=== PATIENT | male | born 1970 | race Caucasian/White ===

== ENCOUNTER 2020-11-04 16:11 | Inpatient (IN) | payer SELFPAY ==
[2020-11-04] VITALS (7 sets, daily range): BP systolic 97–119; BP diastolic 56–79
[~2020-11-04] VITALS: Ht 175.2 cm; Wt 80.4 kg
[2020-11-04 16:59] LABS: HEMATOCRIT 48.3 % (42.0-52.0); MEAN CELL VOLUME 88.3 fl (80.0-94.0); MEAN CORPUSCULAR HGB 28.9 pg (27.0-31.0); MEAN CORPUSCULAR HGB CONC 32.7 g/dl (33.0-37.0); MEAN PLATELET VOLUME 10.2 fl (9.6-12.3); PLATELET COUNT AUTOMATED 304 10*3/uL (130-400); RED BLOOD COUNT 5.47 10*6/uL (4.50-5.90); RED CELL DISTRI WIDTH 13.8 % (0-14.5); WHITE BLOOD COUNT 23.7 10*3/uL (4.8-10.8)
[2020-11-04 17:14] LABS: ALBUMIN 3.8 gm/dl (3.1-4.5); ALKALINE PHOSPHATASE 98 U/L (45-117); BUN 10 mg/dl (7-24); CHLORIDE 105 mmol/L (98-107); CREATININE 1.03 mg/dL (0.70-1.30); LIPASE 62 U/L (73-393); POTASSIUM 3.7 mmol/L (3.5-5.1); SGOT/AST 12 IU/L (3-35); SGPT/ALT 22 U/L (12-78); SODIUM 139 mmol/L (136-145)
[2020-11-04 17:26] LABS: PLATELET SUFFICIENCY NORMAL (NORMAL); TOTAL CELLS COUNTED 100 #CELLS
[2020-11-04 23:48] LABS: BILIRUBIN Negative (Negative); BLOOD Negative (Negative); CLARITY Clear (Clear); COLOR Yellow (Yellow); GLUCOSE Negative (Negative); KETONE Negative (Negative); LEUKO ESTERASE Negative (Negative); NITRITE Negative (Negative); UROBILINOGEN 0.2 E.U./dl (0.0-1.0)
[2020-11-05] VITALS (11 sets, daily range): BP systolic 96–124; BP diastolic 59–78
[2020-11-05 00:05] LABS: BACTERIA TRACE; MUCOUS 2+; WBC 0-2 wbc/hpf (0-5)
[2020-11-05] MEDS ORDERED: FLUOXETINE HYDR20 M1 PO (02:08)
[2020-11-05] MEDS ORDERED: RISPERIDONE1 MG PO (02:08)
[2020-11-05 04:36] LABS: HEMATOCRIT 42.8 % (42.0-52.0); MEAN CELL VOLUME 87.3 fl (80.0-94.0); MEAN CORPUSCULAR HGB 29.2 pg (27.0-31.0); MEAN CORPUSCULAR HGB CONC 33.4 g/dl (33.0-37.0); MEAN PLATELET VOLUME 10.1 fl (9.6-12.3); PLATELET COUNT AUTOMATED 283 10*3/uL (130-400); RED CELL DISTRI WIDTH 13.9 % (0-14.5)
[2020-11-05 04:43] LABS: WHITE BLOOD COUNT 38.8 10*3/uL (4.8-10.8)
[2020-11-05 04:54] LABS: ALBUMIN 2.9 gm/dl (3.1-4.5); ALKALINE PHOSPHATASE 70 U/L (45-117); BUN 13 mg/dl (7-24); CHLORIDE 110 mmol/L (98-107); POTASSIUM 3.7 mmol/L (3.5-5.1); SGOT/AST 9 IU/L (3-35); SGPT/ALT 18 U/L (12-78); SODIUM 141 mmol/L (136-145); TOTAL PROTEIN 6.7 gm/dL (6.4-8.2)
[2020-11-05 04:55] LABS: BURR CELLS MODERATE; PLATELET SUFFICIENCY NORMAL (NORMAL); TOTAL CELLS COUNTED 100 #CELLS
[2020-11-06] VITALS: BP 117/74
[2020-11-06 06:15] LABS: HEMATOCRIT 38.8 % (42.0-52.0); MEAN CELL VOLUME 88.4 fl (80.0-94.0); MEAN CORPUSCULAR HGB 29.6 pg (27.0-31.0); MEAN CORPUSCULAR HGB CONC 33.5 g/dl (33.0-37.0); PLATELET COUNT AUTOMATED 268 10*3/uL (130-400); RED BLOOD COUNT 4.39 10*6/uL (4.50-5.90); WHITE BLOOD COUNT 35.7 10*3/uL (4.8-10.8)
[2020-11-06 06:18] LABS: ALBUMIN 2.7 gm/dl (3.1-4.5); BUN 15 mg/dl (7-24); CHLORIDE 111 mmol/L (98-107); SODIUM 141 mmol/L (136-145)
[2020-11-06 06:27] LABS: ALKALINE PHOSPHATASE 79 U/L (45-117); SGOT/AST 17 IU/L (3-35); SGPT/ALT 14 U/L (12-78); TOTAL PROTEIN 6.6 gm/dL (6.4-8.2)
[2020-11-06 06:30] LABS: POTASSIUM 3.9 mmol/L (3.5-5.1)
[2020-11-06 07:16] LABS: PLATELET SUFFICIENCY NORMAL (NORMAL); TOTAL CELLS COUNTED 100 #CELLS
[2020-11-06 08:00] VITALS: BP 118/70
[2020-11-06 12:00] VITALS: BP 134/72
[2020-11-06 16:00] VITALS: BP 138/65
[2020-11-06 20:00] VITALS: BP 123/72
[2020-11-07] VITALS: BP 125/68
[2020-11-07 06:15] LABS: BASO % 0.2 % (0.0-1.0); EOS # 0.1 10*3/uL (0.0-0.4); EOS % 0.4 % (1.0-4.0); HEMATOCRIT 38.9 % (42.0-52.0); LYMPH # 1.1 10*3/uL (1.3-4.4); LYMPH % 4.8 % (27.0-41.0); MEAN CELL VOLUME 87.6 fl (80.0-94.0); MEAN CORPUSCULAR HGB 28.6 pg (27.0-31.0); MEAN CORPUSCULAR HGB CONC 32.6 g/dl (33.0-37.0); MEAN PLATELET VOLUME 10.7 fl (9.6-12.3); MONO # 1.5 10*3/uL (0.1-1.0); MONO % 6.8 % (3.0-9.0); NEUT # 19.2 10*3/uL (2.3-7.9); NEUT % 87.2 % (47.0-73.0); PLATELET COUNT AUTOMATED 290 10*3/uL (130-400); RED BLOOD COUNT 4.44 10*6/uL (4.50-5.90); RED CELL DISTRI WIDTH 14.1 % (0-14.5)
[2020-11-07 06:43] LABS: BUN 14 mg/dl (7-24); CHLORIDE 108 mmol/L (98-107); POTASSIUM 3.3 mmol/L (3.5-5.1); SODIUM 140 mmol/L (136-145)
[2020-11-07 06:45] LABS: CREATININE 0.91 mg/dL (0.70-1.30)
[2020-11-07 08:00] VITALS: BP 126/78
[2020-11-07] MEDS ORDERED: AUGMENTIN 875-875 MG PO (10:43)
[2020-11-07] MEDS ORDERED: HYDROCODONE-AC1 EAC1 PO (10:45)
== END 2020-11-07 14:00 | disposition home or self-care (01) | DRG 854 ==
LOC: ED 16:11 → 5E 19:42 → EDHOLD 19:42 → 5E 11-05 08:32
PROVIDERS: Emergency Medicine; Internal Medicine; Student in an Organized Health Care Education/Training Program; ADMIT Family Medicine; ATTEND Family Medicine
PROC: 0DTJ4ZZ Resection of Appendix, Percutaneous Endoscopic Approach (ICD-10-PCS; principal; 2020-11-05)
DX: A41.9 Sepsis, unspecified organism (principal); K35.30 Acute appendicitis with localized peritonitis, without perforation or gangrene; E44.1 Mild protein-calorie malnutrition; F31.9 Bipolar disorder, unspecified; F41.9 Anxiety disorder, unspecified; R73.9 Hyperglycemia, unspecified; F17.210 Nicotine dependence, cigarettes, uncomplicated; E87.8 Other disorders of electrolyte and fluid balance, not elsewhere classified; Z71.6 Tobacco abuse counseling; Z68.26 Body mass index [BMI] 26.0-26.9, adult